=== PATIENT | male | born 1955 | race Caucasian/White ===

== ENCOUNTER 2023-03-09 12:39 | Emergency (ER) | payer OTHER, SELFPAY ==
--- NOTE | 2023-03-09 12:46 | ED.FALL ---
HPI - Fall General Chief Complaint: Wound/Laceration Stated Complaint: Fall Injury/Laceration to Head Time Seen by Provider: 03/09/23 13:01 Mode of arrival: ambulatory Limitations: no limitations History of Present Illness HPI Narrative: 67-year-old male presents with concern for head injury. Around 8:00 a.m. today he slipped and fell and hit his head on his driveway. Reports his shoulder hit 1st and then his head. He denies loss consciousness. Denies headache. He takes aspirin. complaint: fall Related Data Home Medications Medication Instructions Recorded Confirmed amlodipine 10 mg tablet mg 03/09/23 atorvastatin 80 mg tablet mg 03/09/23 insulin glargine 100 unit/mL unit subcut 03/09/23 subcutaneous solution (Lantus U-100 Insulin) lisinopril 20 mg tablet mg 03/09/23 metformin 1,000 mg tablet mg 03/09/23 omeprazole 40 mg capsule,delayed mg 03/09/23 release Allergies Allergy/AdvReac Type Severity Reaction Status Date / Time No Known Allergies Allergy Verified 03/09/23 12:55 Review of Systems Review of Systems: CONSTITUTIONAL: Denies malaise, chills, sweats, or fever. EYES: Denies visual changes RESPIRATORY: Denies dyspnea. GASTROINTESTINAL: Denies nausea, vomiting SKIN: Reports laceration to the right-sided scalp MUSCULOSKELETAL: Denies musculoskeletal pain NEUROLOGIC: Denies numbness, weakness, or headache. All systems reviewed & are unremarkable except as noted in HPI and below PMFSH Comments At time of signature, agree with nursing past medical, surgical, social and family history. There is no relevant family history pertinent to the presenting complaint Exam Narrative: GENERAL: Well-appearing, well-nourished, and in no acute distress. HEAD: Normocephalic EYES: PERRLA, sclera clear, and EOMI. No nystagmus. ENT: Nares clear. Mucous membranes moist. NECK: Supple. CHEST: No respiratory distress. Speaks in full sentences. HEART: Regular rate and rhythm. SKIN: Warm, dry 2 cm linear laceration on the right scalp NEURO: Alert and oriented x3. No focal deficits. PSYCH: Normal mood and affect HENMT: Head images: 1. 2 cm linear laceration into the subcutaneous tissue Course Course Emergency Course: Patient is aware of, understands and agrees to be transferred to the emergency room. Patient agrees to proceed directly to the emergency department. Portions of this record may have been created with voice recognition software Level of Care: Express Care Visit Vital Signs Vital signs: Reviewed. MDM - Fall MDM Narrative Medical decision making narrative: CCHR score: Signs of open or depressed skull fracture: No Ramirez sign/raccoon eyes: No 2 or more episodes of vomiting: No Age 65 years +: Yes Amnesia for events occurring 30 minutes prior to trauma: No Dangerous mechanism of injury (pedestrian struck by motor vehicle, occupant ejected from motor vehicle, fall from >3 feet or >5 stairs): No Exam findings show no acute concerns; patient is alert and oriented with normal neurological exam. Critical Care Time Critical Care Time Critical Care Time: No Discharge Plan Discharge Clinical Impression: Head injury Patient Disposition: Acute Care Hospital Condition: Stable Prescriptions: No Action atorvastatin 80 mg tablet insulin glargine [Lantus U-100 Insulin] 100 unit/mL solution SUBCUT lisinopril 20 mg tablet omeprazole 40 mg capsule,delayed release(DR/EC) amlodipine 10 mg tablet metformin 1,000 mg tablet Follow-up/Referrals: Eleno,Angelo Smith MD [Primary Care Provider] - Time of Disposition: 13:13
[2023-03-09 12:56] VITALS: BP 177/81; PULSE 106; RESP 16; TEMP 37.3; O2SAT 96
== END 2023-03-09 13:22 | disposition short-term general hospital (02) ==
PROVIDERS: Emergency Provider Nurse Practitioner; PCP Internal Medicine
DX: S09.90XA Unspecified injury of head, initial encounter (principal); W01.0XXA Fall on same level from slipping, tripping and stumbling without subsequent striking against object, initial encounter; S01.01XA Laceration without foreign body of scalp, initial encounter; Z79.82 Long term (current) use of aspirin
CPT/HCPCS: 99212; G0463

== ENCOUNTER 2023-03-16 16:48 | Emergency (ER) | payer OTHER, SELFPAY ==
[2023-03-16 17:14] VITALS: BP 152/81; PULSE 92; RESP 20; TEMP 36.4; O2SAT 95
--- NOTE | 2023-03-16 17:26 | ED.SKABFB ---
HPI - Skin/Abscess/Foreign Bdy General Chief complaint: Skin/Abscess/Foreign Body Stated complaint: Mason removed from Head History of Present Illness HPI narrative: Patient here for staple removal. Patient had 4 mason placed in his right side of his scalp 7 days ago. Edges well approximated no drainage no streaking no concern for infection Related Data Home Medications Medication Instructions Recorded Confirmed amlodipine 10 mg tablet 10 mg PO DAILY 03/09/23 03/16/23 atorvastatin 80 mg tablet 80 mg PO DAILY 03/09/23 03/16/23 insulin glargine 100 unit/mL See Rx Instructions .Route .COMPLEX 03/09/23 03/16/23 subcutaneous solution (Lantus U-100 Insulin) lisinopril 20 mg tablet 20 mg PO DAILY 03/09/23 03/16/23 metformin 1,000 mg tablet 1,000 mg PO BID 03/09/23 03/16/23 omeprazole 40 mg capsule,delayed 40 mg PO DAILY 03/09/23 03/16/23 release Allergies Allergy/AdvReac Type Severity Reaction Status Date / Time No Known Allergies Allergy Verified 03/09/23 12:55 Review of Systems Review of Systems: CONSTITUTIONAL: Denies fever, chills, or sweats. EYES: Denies visual changes, redness, or discharge. ENT: Denies rhinorrhea, congestion, sore throat, or otalgia. CARDIOVASCULAR: Denies chest pain, palpitations, or edema. RESPIRATORY: Denies cough or dyspnea. GASTROINTESTINAL: Denies abdominal pain, nausea, vomiting, or diarrhea. GENITOURINARY: Denies dysuria or hematuria. SKIN: Denies rash or itching. MUSCULOSKELETAL: Denies back pain, joint pain, or myalgia. NEUROLOGIC: Denies headache, numbness, or weakness. PSYCHIATRIC: Denies anxiety or depression. PMFSH Comments At time of signature, agree with nursing past medical, surgical, social and family history. There is no relevant family history pertinent to the presenting complaint Exam Narrative: GENERAL: Well-appearing, well-nourished, and in no acute distress. HEAD: Normocephalic, atraumatic. EYES: PERRLA and EOMI. ENT: Nares clear, no rhinorrhea or epistaxis. Mucous membranes moist. NECK: Supple. CHEST: Clear to auscultation. No respiratory distress. HEART: Regular rate and rhythm. No murmur heard. Normal peripheral pulses. ABDOMEN: Soft, nontender, nondistended, normal active bowel sounds. EXTREMITIES: Normal range of motion. No edema. SKIN: Warm, dry, no rash. NEURO: No focal deficits. Alert and oriented x3. Red Coma Scale Eye Opening: Spontaneous 4 [place] Coma Scale Motor: Obeys Commands 6 [place] Coma Scale Verbal: Oriented 5 Red Coma Scale Total 15 Course Course Level of Care: Express Care Visit Vital Signs Vital signs: Vital Signs Temperature 36.4 C L 03/16/23 17:14 Pulse Rate 92 03/16/23 17:14 Respiratory Rate 20 03/16/23 17:14 Blood Pressure 152/81 H 03/16/23 17:14 Pulse Oximetry 95 03/16/23 17:14 Oxygen Delivery Room Air 03/16/23 17:14 Temperature 36.4 C L 03/16/23 17:14 Pulse Rate 92 03/16/23 17:14 Respiratory Rate 20 03/16/23 17:14 Blood Pressure 152/81 H 03/16/23 17:14 Pulse Oximetry 95 03/16/23 17:14 Oxygen Delivery Room Air 03/16/23 17:14 Procedures Other Procedure Procedure 1: Other Procedure: Staple removal 4 mason removed from scalp laceration. [place] were placed 7 days ago no redness no swelling no drainage no concern for infection edges well approximated patient tolerated well. Discharge Plan Discharge Clinical Impression: Encounter for removal of mason Patient Disposition: Home, Self-Care Condition: Stable Instructions: Wound Healing and Your Diet (ED) Additional Instructions: You may were sure here is normal Follow-up with primary care provider as needed Monitor for any signs or symptoms of infection May apply Neosporin daily Prescriptions: No Action atorvastatin 80 mg tablet 80 mg PO DAILY insulin glargine [Lantus U-100 Insulin] 100 unit/mL solution See Rx Instructions .ROUTE .COMPLEX Rx Instructions:
== END 2023-03-16 17:35 | disposition home or self-care (01) ==
PROVIDERS: Emergency Provider Nurse Practitioner Family; PCP Internal Medicine
DX: S01.01XD Laceration without foreign body of scalp, subsequent encounter (principal); X58.XXXD Exposure to other specified factors, subsequent encounter
CPT/HCPCS: 99211; G0463